=== PATIENT | female | born 1950 | race Two or more races ===

== ENCOUNTER 2016-10-21 15:30 | Emergency (ER) | payer MEDICAID ==
--- NOTE | 2016-10-21 15:42 | ED Physician Documentation ---
PD HPI UPPER EXT INJURY - Stated complaint Stated Complaint: FINGER PX - Chief complaint Chief Complaint: Ext Problem - History obtained from History obtained from: Patient - History of Present Illness Location: Left (She had a near fall today and braced herself with the left hand and has persistent pain of the left fourth finger, no other injuries. She declines pain medication) Review of Systems Constitutional: denies: Fever, Chills GI: denies: Abdominal Pain, Nausea Musculoskeletal: denies: Neck pain, Back pain, Pain with weight bearing Neurologic: denies: Headache, Head injury, LOC PD PAST MEDICAL HISTORY - Past Medical History Endocrine/Autoimmune: HyPOthyroidism - Past Surgical History Past Surgical History: Yes General: Cholecystectomy, Appendectomy - Present Medications Home Medications: Ambulatory Orders Medication Instructions Recorded Confirmed HYDROcod/ACETAM 5/325 [Axson 5/325] 1 - 2 ea PO Q6H PRN #15 tablet 06/23/16 Levothyroxine [Synthroid] 125 mcg DAILY 06/23/16 06/23/16 - Allergies Allergies/Adverse Reactions: Allergies Allergy/AdvReac Type Severity Reaction Status Date / Time No Known Drug Allergies Allergy Verified 06/23/16 11:58 - Social History Does the pt smoke?: No Smoking Status: Former smoker Does the pt drink ETOH?: No Does the pt have substance abuse?: No - Immunizations Immunizations are current?: Yes PD ED PE NORMAL - Vitals Vital signs reviewed: Yes - General General: Alert and oriented X 3, No acute distress - Extremities Extremities: Other (Left wrist and hand are nontender, she does have significant swelling, tenderness, ecchymosis, and limited range of motion at both of the interphalangeal joints of the left fourth finger with good neurovascular status of the tip.) - Neuro Neuro: Alert and oriented X 3, Normal speech - Psych Psych: Normal mood, Normal affect Results - Vitals Vitals: Vital Signs - 24 hr 10/21/16 10/21/16 15:33 17:02 Temperature 36.3 C L 36.6 C Heart Rate 103 H 92 Respiratory 16 16 Rate Blood Pressure 139/85 H 136/81 H O2 Saturation 98 98 Oxygen O2 Source Room air - Rads (name of study) L 4th finger Radiology: EMP read contemporaneously (OA, poss mid phalanx frx) Procedures - Splint (location) L 4th finger Splint applied by: Physician Type of splint: Metal foam finger splint Other: Patient tolerated well, No complications, Neurovascular intact Departure - Departure Disposition: 01 Home, Self Care Clinical Impression: Finger fracture, left Condition: Good Record reviewed to determine appropriate education?: Yes Instructions: ED Fx Finger Closed Comments: Tylenol as needed for pain. Keep the splint on for a couple of weeks and then you can start gentle range of motion, followup with your family doctor in one week for recheck. Your blood pressure was elevated today on check in to the emergency department. This does not mean that you have hypertension, it is a common phenomenon to check into the emergency department and have elevated blood pressure. I recommend that you see your primary care physician within the week to have it rechecked when you're feeling better. Discharge Date/Time: 10/21/16 17:02
--- NOTE | 2016-10-21 16:31 | XRAY Preliminary Report ---
Exam: XR Finger(s) LT IMPRESSION: 1. Bone demineralization. 2. Equivocal subtle impaction fracture of distal fourth middle phalanx, though no prominent focal sof t tissue swelling. Correlate clinically. 3. Healing distal radial fracture in stable alignment. [facility] SITE ID: [id number]
--- NOTE | 2016-10-21 16:34 | XRAY Report ---
EXAM: LEFT RING FINGER, 3 VIEWS EXAM DATE: 10/21/2016 03:54 PM. CLINICAL HISTORY: Left ring finger pain, swelling, bruising. Cough herself in process of fall. COMPARISON: Left wrist series 06/23/2016. TECHNIQUE: 3 views. FINDINGS: Bones: Bones are demineralized which diminishes trabecular detail. Equivocal subtle intra-articular i mpaction fracture of the distal fourth middle phalanx. No other acute bony abnormality identified. In terval healing of distal radial fracture in stable alignment. Joints: No subluxation. 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 Soft Tissues: Mild swelling. IMPRESSION: 1. Bone demineralization. 2. Equivocal subtle impaction fracture of distal fourth middle phalanx, though no prominent focal sof t tissue swelling. Correlate clinically. 3. Healing distal radial fracture in stable alignment. [facility] Referring Provider Line: [phone] SITE ID: [id number]
[2016-10-21 17:04] VITALS: BP 136/81
== END 2016-10-21 17:02 | disposition home or self-care (01) ==
LOC: ED 15:30
DX: S62.625A Displaced fracture of middle phalanx of left ring finger, initial encounter for closed fracture (principal); W01.198A Fall on same level from slipping, tripping and stumbling with subsequent striking against other object, initial encounter; M81.0 Age-related osteoporosis without current pathological fracture; E03.9 Hypothyroidism, unspecified; Z87.891 Personal history of nicotine dependence
CPT/HCPCS: 29130; 73140; 99283

== ENCOUNTER 2016-11-18 10:30 | Emergency (ER) | payer MEDICAID ==
[2016-11-18] MEDS ORDERED: HYDROcod/ACETAM 5/325 MG TABLET PO STA (13:29)
[2016-11-18] MEDS ORDERED: HYDROcod/ACETAM 5/325 MG TABLET ONE (13:32)
== END 2016-11-18 13:45 | disposition home or self-care (01) ==
DX: S42.292A Other displaced fracture of upper end of left humerus, initial encounter for closed fracture (principal); W18.39XA Other fall on same level, initial encounter; Y93.K1 Activity, walking an animal; E03.9 Hypothyroidism, unspecified; Z87.891 Personal history of nicotine dependence
CPT/HCPCS: 73030; 73060; 99283; A9270

== ENCOUNTER 2017-08-07 09:28 | Outpatient (CLI) | payer MEDICAID ==
[2017-08-07 13:49] LABS: BASOPHILS % (AUTO) 0.4 %; EOSINOPHILS # (AUTO) 0.1 10^3/uL (0.0-0.7); EOSINOPHILS % (AUTO) 1.7 %; HCT - HEMATOCRIT 38.1 % (37.0-47.0); HGB - HEMOGLOBIN 12.8 g/dL (12.0-16.0); LYMPHOCYTES # (AUTO) 2.8 10^3/uL (1.5-3.5); LYMPHOCYTES % (AUTO) 40.7 %; MEAN CORPUSCULAR HGB CONC 33.6 g/dL (32.0-36.0); MEAN CORPUSCULAR VOLUME 89.3 fL (81.0-99.0); MEAN PLATELET VOLUME 8.2 fL (7.9-10.8); MONOCYTES # (AUTO) 0.4 10^3/uL (0.0-1.0); MONOCYTES % (AUTO) 5.8 %; NEUTROPHILS # (AUTO) 3.5 10^3/uL (1.5-6.6); NEUTROPHILS % (AUTO) 51.4 %; RED BLOOD COUNT 4.26 10^6/uL (4.20-5.40); RED CELL DISTRIBUTION WIDTH 14.3 % (12.0-15.0); UNCORRECTED WHITE BLOOD COUNT 6.8 x10^3/uL; WHITE BLOOD COUNT 6.8 x10^3/uL (4.8-10.8)
[2017-08-07 14:03] LABS: H. PYLORI IGG ANTIBODY POSITIVE (Negative); HPYLORI NEG QC Negative (Negative); HPYLORI POS QC POSITIVE (Positive)
[2017-08-07 14:17] LABS: ALBUMIN/GLOBULIN RATIO 1.1 (1.0-2.2); BILIRUBIN,TOTAL 0.8 mg/dL (0.2-1.0); BUN - BLOOD UREA NITROGEN 16 mg/dL (6-20); CALCIUM 9.3 mg/dL (8.5-10.3); CARBON DIOXIDE - CO2 22 mmol/L (21-32); CHLORIDE 107 mmol/L (101-111); CHOL/HDL RATIO 4.1 (<4.4); CHOLESTEROL 134 mg/dL; CREATININE 0.6 mg/dL (0.4-1.0); GFR - MDRD 101 (>89); GLUCOSE 100 mg/dL (70-100); HDL CHOLESTEROL 33 mg/dL; POTASSIUM 3.9 mmol/L (3.5-5.0); SODIUM 137 mmol/L (135-145); TRIGLYCERIDES 181 mg/dL; VLDL CHOLESTEROL 36 mg/dL
[2017-08-07 14:22] LABS: THYROID STIMULATING HORMONE 0.08 uIU/mL (0.34-5.60)
== END 2017-08-07 09:29 | disposition home or self-care (01) ==
LOC: LAB.N 09:28
PROVIDERS: ATTEND Nurse Practitioner Gerontology
DX: E78.00 Pure hypercholesterolemia, unspecified (principal); E03.9 Hypothyroidism, unspecified; K30 Functional dyspepsia
CPT/HCPCS: 36415; 80053; 80061; 84439; 84443; 85025; 87339

== ENCOUNTER 2017-09-17 08:00 | Outpatient (CLI) | payer MEDICAID | END 2017-09-17 08:01 | disposition home or self-care (01) | LOC: LAB.N 08:00 | PROVIDERS: ATTEND Nurse Practitioner Gerontology | DX: E03.9 Hypothyroidism, unspecified (principal) | CPT/HCPCS: 36415; 84443 ==

== ENCOUNTER 2017-09-26 14:10 | Outpatient (CLI) | payer MEDICAID ==
--- NOTE | 2017-09-26 16:11 | Mammography Report ---
EXAM: DIGITAL DIAGNOSTIC LEFT MAMMOGRAM: 09/26/2017 CLINICAL INDICATION: Abnormal mammogram at outside facility. TECHNIQUE: Left true lateral, repeat CC, CC spot compression views were obtained. COMPARISON: Mammograms from [place], [place] dated 05/18/2017, 04/22/2016. FINDINGS: The left breast again demonstrates scattered fibroglandular densities. The questioned asymmetry seen on the previous CC view does not persist on additional compression. No underlying mass or architectural distortion is appreciated. Coarse, typically benign calcifications are present. IMPRESSION: BENIGN FINDINGS. RECOMMENDATIONS: Routine annual screening unless otherwise clinically indicated. BIRADS CATEGORY 2-BENIGN FINDINGS. STANDARD QUALIFYING STATEMENTS: 1. This examination was reviewed with the aid of Computer-Aided Detection (CAD) . 2. A negative or benign imaging report should not delay biopsy if clinically suspicious findings are present. Consider surgical consultation if warranted. More than 5% of cancers are not identified by imaging. 3. Dense breasts may obscure an underlying neoplasm. TD: 09/26/2017 16:08 ESTHER
== END 2017-09-26 14:11 | disposition home or self-care (01) ==
LOC: DI 14:10
PROVIDERS: ATTEND Nurse Practitioner Gerontology
DX: N63.20 Unspecified lump in the left breast, unspecified quadrant (principal); Z87.898 Personal history of other specified conditions